=== PATIENT | male | born 1940 | race Caucasian/White ===

== ENCOUNTER 2018-07-21 10:13 | Inpatient (IN) ==
[2018-07-21] MEDS ORDERED: Acetaminophen 325 MG Tablet PO ONE (10:16)
[2018-07-21] MEDS ORDERED: Azithromycin 250 MG Tablet PO STA (10:16)
--- NOTE | 2018-07-21 10:23 | ED ---
HPI General Chief Complaint: Fever Stated Complaint: sob Time Seen by Provider: 07/21/18 10:16 Source: patient and family Mode of arrival: ambulatory Limitations: no limitations History of Present Illness MD complaint: Reports fever Onset (ago): day(s) Temperature Source: oral Associated symptoms: Reports rhinorrhea, nasal congestion and cough; Denies headache Relieving factors: "cold medicine" Exacerbating factors: nothing Treatments prior to arrival fever: Reports none Related Data Home Medications Medication Instructions Recorded Confirmed albuterol sulfate [Ventolin HFA] 2 puff INHALATION QID 07/21/18 07/21/18 amlodipine 10 mg PO DAILY 07/21/18 07/21/18 aspirin [Aspirin Low Dose] 1 tab PO DAILY 07/21/18 07/21/18 atorvastatin 10 mg PO DAILY 07/21/18 07/21/18 azelastine 1 spray INTRANASAL BID 07/21/18 07/21/18 calcium citrate-vitamin D3 1 tab PO BID 07/21/18 07/21/18 [Citracal + D Maximum] cholecalciferol (vitamin D3) 5,000 unit PO DAILY 07/21/18 07/21/18 [Vitamin D3] colestipol 1 g PO DAILY 07/21/18 07/21/18 ezetimibe [Zetia] 10 mg PO DAILY 07/21/18 07/21/18 fluticasone [ClariSpray] 1 spray INTRANASAL DAILY 07/21/18 07/21/18 fluticasone [Flonase Allergy 1 spray INTRANASAL DAILY 07/21/18 07/21/18 Relief] ipratropium bromide 2 spray INTRANASAL BID 07/21/18 07/21/18 Allergies Allergy/AdvReac Type Severity Reaction Status Date / Time No Known Allergies Allergy Verified 07/21/18 10:16 Review of Systems ROS: all other systems reviewed are negative Constitutional Reports fever(s) ENT Reports nasal discharge Cardiovascular Denies chest pain PMFSH Surgical History Surgical History Hx of total knee replacement (Acute) Social History Social History Substance History: No History of Abuse Second Hand Smoke Exposure: No Smoking Status: Former smoker How Often Do You Have a Drink Containing Alcohol: Monthly or less [facility] within the Last 8 Weeks: No Recent Out of Country Travel within the Last 8 Weeks: No Exam Narrative Exam Narrative: GENERAL: Uncomfortable looks ill SKIN: Focused skin assessment warm/dry. HEAD: Atraumatic. Normocephalic. EYES: Pupils equal and round. No scleral icterus. No injection or drainage. ENT: No nasal bleeding or discharge. Mucous membranes pink and moist. No angioedema non drooling NECK: Trachea midline. No JVD. No meningeal signs CARDIOVASCULAR: Regular rate and rhythm RESPIRATORY: No accessory muscle use. . Breath sounds equal decreased bilaterally. GASTROINTESTINAL: Abdomen soft, non-tender, nondistended. Nontender calves MUSCULOSKELETAL: No obvious deformities. No clubbing. No cyanosis. No edema. NEUROLOGICAL: Awake and alert. No obvious cranial nerve deficits. Motor grossly within normal limits. Normal speech. PSYCHIATRIC: Appropriate mood and affect; insight and judgment normal. Course Reevaluation(s) Reevaluation #1: jessica Tuttle looks better. Discussed with /daughter at bedside no signs of acute airway compromise. Discussed with nalini jacobs md to admit Time: 11:54 Initial Documented Vital Signs Temperature 99.1 F 07/21/18 10:15 Pulse Rate 116 H 07/21/18 10:15 Respiratory Rate 20 07/21/18 10:15 Blood Pressure 154/68 H 07/21/18 10:15 Pulse Oximetry 72 L 07/21/18 10:15 Last Documented Vital Signs Temperature 99.1 F 07/21/18 10:15 Pulse Rate 81 07/21/18 11:33 Respiratory Rate 16 07/21/18 11:33 Blood Pressure 154/68 H 07/21/18 10:15 Pulse Oximetry 89 L 07/21/18 10:25 Medical Decision Making [facility] Narrative Medical Screen Exam Complete: Yes Emergency Medical Condition: Yes Lab Data Result diagrams: 07/21/18 10:15 07/21/18 10:15 Lab Results 07/21/18 07/21/18 07/21/18 Range/Units 10:14 10:15 10:15 CBC w Diff Auto diff final WBC 10.8 (4.0-11.0) th/mm3 RBC 4.88 (4.50-5.90) mil/mm3 Hgb 13.6 (13.0-17.0) gm/dL Hct 39.8 (39.0-51.0) % MCV 81.7 (80.0-100.0) fL MCH 27.8 (27.0-34.0) pg MCHC 34.0 (32.0-36.0) % RDW 13.6 (11.6-17.2) % Plt Count 172 (150-450) th/mm3 MPV 8.7 (7.0-11.0) fL Neut % (Auto) 80.0 H (16.0-70.0) % Lymph % (Auto) 10.5 (9.0-44.0) % [place] % (Auto) 8.3 H (0.0-8.0) % Eos % (Auto) 0.8 (0.0-4.0) % Baso % (Auto) 0.4 (0.0-2.0) % Neut # (Auto) 8.6 H (1.8-7.7) th/mm3 Lymph # (Auto) 1.1 (1.0-4.8) th/mm3 [place] # (Auto) 0.9 (0.0-0.9) th/mm3 Eos # (Auto) 0.1 (0.0-0.4) th/mm3 Baso # (Auto) 0.0 (0.0-0.2) th/mm3 WBC Differential . Differential Comment . Sodium 142 (136-145) meq/L Potassium 4.7 (3.5-5.1) meq/L Chloride 107 (98-107) meq/L Carbon Dioxide 26.5 (21.0-32.0) meq/L Anion Gap 9 (5-15) meq/L BUN 17 (7-18) mg/dL Creatinine 1.30 (0.60-1.30) mg/dL Estimated GFR 53 L (>89) mL/min POC Glucose (68-110) mg/dl Random Glucose 180 H (74-106) mg/dL Lactic Acid 3.0 H (0.4-2.0) mmol/L Calcium 8.3 L (8.5-10.1) mg/dL Magnesium 1.8 (1.5-2.5) mg/dL Total Bilirubin 1.0 (0.2-1.0) mg/dL AST 25 (15-37) U/L ALT 23 (12-78) U/L Alkaline Phosphatase 88 (45-117) U/L Troponin I (0.02-0.05) ng/mL Total Protein 6.3 L (6.4-8.2) g/dL Albumin 3.0 L (3.4-5.0) g/dL Ur Collection Type Urine Color (Yellw/Straw) Urine Clarity (Clear) Urine pH (5.0-8.5) Ur Specific [place] (1.002-1.035) Urine Protein (Neg-Trace) mg/dL Urine Glucose (UA) (Negative) mg/dL Urine Ketones (Negative) mg/dL Urine Occult Blood (Negative) Urine Nitrate (Negative) Urine Bilirubin (Negative) Urine Urobilinogen (Less than 2) mg/dL Ur Leukocyte Esterase (Negative) Urine WBC (0-5) /hpf Ur Squamous Epith Cells (0-5) /hpf Urine Mucus (Occasional) /lpf Micro UA Comment Ur Microscopic Review Urine Culture Comments 07/21/18 07/21/18 07/21/18 Range/Units 10:15 10:36 11:12 CBC w Diff WBC (4.0-11.0) th/mm3 RBC (4.50-5.90) mil/mm3 Hgb (13.0-17.0) gm/dL Hct (39.0-51.0) % MCV (80.0-100.0) fL MCH (27.0-34.0) pg MCHC (32.0-36.0) % RDW (11.6-17.2) % Plt Count (150-450) th/mm3 MPV (7.0-11.0) fL Neut % (Auto) (16.0-70.0) % Lymph % (Auto) (9.0-44.0) % [place] % (Auto) (0.0-8.0) % Eos % (Auto) (0.0-4.0) % Baso % (Auto) (0.0-2.0) % Neut # (Auto) (1.8-7.7) th/mm3 Lymph # (Auto) (1.0-4.8) th/mm3 [place] # (Auto) (0.0-0.9) th/mm3 Eos # (Auto) (0.0-0.4) th/mm3 Baso # (Auto) (0.0-0.2) th/mm3 WBC Differential Differential Comment Sodium (136-145) meq/L Potassium (3.5-5.1) meq/L Chloride (98-107) meq/L Carbon Dioxide (21.0-32.0) meq/L Anion Gap (5-15) meq/L BUN (7-18) mg/dL Creatinine (0.60-1.30) mg/dL Estimated GFR (>89) mL/min POC Glucose 155 H (68-110) mg/dl Random Glucose (74-106) mg/dL Lactic Acid (0.4-2.0) mmol/L Calcium (8.5-10.1) mg/dL Magnesium (1.5-2.5) mg/dL Total Bilirubin (0.2-1.0) mg/dL AST (15-37) U/L ALT (12-78) U/L Alkaline Phosphatase (45-117) U/L Troponin I 0.03 (0.02-0.05) ng/mL Total Protein (6.4-8.2) g/dL Albumin (3.4-5.0) g/dL Ur Collection Type Clean catch Urine Color Straw (Yellw/Straw) Urine Clarity Clear (Clear) Urine pH 5.5 (5.0-8.5) Ur Specific [place] 1.025 (1.002-1.035) Urine Protein Negative (Neg-Trace) mg/dL Urine Glucose (UA) Negative (Negative) mg/dL Urine Ketones Negative (Negative) mg/dL Urine Occult Blood Negative (Negative) Urine Nitrate Negative (Negative) Urine Bilirubin Negative (Negative) Urine Urobilinogen 0.2 (Less than 2) mg/dL Ur Leukocyte Esterase Negative (Negative) Urine WBC 0-5 (0-5) /hpf Ur Squamous Epith Cells 0-5 (0-5) /hpf Urine Mucus Few H (Occasional) /lpf Micro UA Comment Culture not ind Ur Microscopic Review Microscopic reviewed Urine Culture Comments Culture not ind Imaging Data Radiologist's impression: Chest X-Ray 07/21/18 10:18 CONCLUSION: Increased interstitial markings bilaterally suggestive of pulmonary edema versus pneumonia. ECG Data Interpretation: sinus 82, no stemi Discharge Plan Discharge Disposition Patient Disposition: ED Admit(ED Internal Use Only) Discharge Details Diagnosis: Community acquired pneumonia Physicians Team ED Provider: Hermes Lovelace Primary Care Provider: NON STAFF,PROVIDER Rxs /Orders / Referrals /Forms Prescriptions: No Action atorvastatin 10 mg Tablet 10 mg PO DAILY RF: 0 aspirin [Aspirin Low Dose] 81 mg Tablet,Delayed Release (Dr/Ec) 1 tab PO DAILY RF: 0 amlodipine 10 mg Tablet 10 mg PO DAILY RF: 0 albuterol sulfate [Ventolin HFA] 90 mcg/actuation Hfa Aerosol Inhaler 2 puff INHALATION QID RF: 0 fluticasone [ClariSpray] 50 mcg/actuation [place],Suspension 1 spray INTRANASAL DAILY RF: 0 fluticasone [Flonase Allergy Relief] 50 mcg/actuation [place],Suspension 1 spray INTRANASAL DAILY RF: 0 colestipol 1 gram Tablet 1 g PO DAILY RF: 0 ipratropium bromide 0.03 % [place],Non-Aerosol 2 spray INTRANASAL BID RF: 0 ezetimibe [Zetia] 10 mg Tablet 10 mg PO DAILY RF: 0 calcium citrate-vitamin D3 [Citracal + D Maximum] 315-250 mg-unit Tablet 1 tab PO BID RF: 0 cholecalciferol (vitamin D3) [Vitamin D3] 5,000 unit Tablet 5,000 unit PO DAILY RF: 0 azelastine 0.15 % (205.5 mcg) [place]set,Non-Aerosol 1 spray INTRANASAL BID RF: 0 Discharge Interventions Interventions: Vital Signs Last Done: 07/21/18 11:54 Status ED Status: Pending Admission
--- NOTE | 2018-07-21 10:36 | XR ---
EXAM DATE: 07/21/2018 10:33 AM EST AGE/SEX: 78 years / Male INDICATIONS: Short of breath, cough, fever CLINICAL DATA: This is the patient's initial encounter. Patient reports that signs and symptoms have been present for 4 - 6 days and indicates a pain score of 0/10. MEDICAL/SURGICAL HISTORY: Chronic obstructive pulmonary disease. None. COMPARISON: No prior exams available for comparison. FINDINGS: There is increased interstitial markings bilaterally.. The heart size is mildly enlarged. No signific ant pleural effusions are demonstrated. No focal parenchymal infiltrates are demonstrated. The bony s tructures are grossly intact. There is no pneumothorax. CONCLUSION: Increased interstitial markings bilaterally suggestive of pulmonary edema versus pneumonia. Electronically signed by: Jn Markham MD 07/21/2018 10:35 AM EST
[2018-07-21 10:53] LABS: Baso % (Auto) 0.4 % (0.0-2.0); Eos # (Auto) 0.1 th/mm3 (0.0-0.4); Eos % (Auto) 0.8 % (0.0-4.0); Hematocrit 39.8 % (39.0-51.0); Hemoglobin 13.6 gm/dL (13.0-17.0); Lymph # (Auto) 1.1 th/mm3 (1.0-4.8); Lymph % (Auto) 10.5 % (9.0-44.0); Mean Corpuscular Hemoglobin 27.8 pg (27.0-34.0); Mean Corpuscular Volume 81.7 fL (80.0-100.0); Mean Platelet Volume 8.7 fL (7.0-11.0); Mono # (Auto) 0.9 th/mm3 (0.0-0.9); Mono % (Auto) 8.3 % (0.0-8.0); Neut # (Auto) 8.6 th/mm3 (1.8-7.7); Platelet Count 172 th/mm3 (150-450); Red Blood Count 4.88 mil/mm3 (4.50-5.90); Red Cell Distribution Width 13.6 % (11.6-17.2); White Blood Count 10.8 th/mm3 (4.0-11.0)
[2018-07-21 11:17] LABS: Chloride 107 meq/L (98-107); Potassium 4.7 meq/L (3.5-5.1); Sodium 142 meq/L (136-145)
[2018-07-21 11:20] LABS: Anion Gap 9 meq/L (5-15); Calcium 8.3 mg/dL (8.5-10.1); Carbon Dioxide 26.5 meq/L (21.0-32.0); Glucose,Random 180 mg/dL (74-106); Magnesium 1.8 mg/dL (1.5-2.5)
[2018-07-21 11:21] LABS: Blood Urea Nitrogen 17 mg/dL (7-18)
[2018-07-21 11:23] LABS: Alanine Aminotransferase 23 U/L (12-78)
[2018-07-21 11:24] LABS: Aspartate Aminotransferase 25 U/L (15-37); Glomerular Filtration Rate 53 mL/min (>89)
[2018-07-21 11:25] LABS: Total Protein 6.3 g/dL (6.4-8.2)
[2018-07-21 11:26] LABS: Alkaline Phosphatase 88 U/L (45-117)
[2018-07-21 11:39] LABS: Bilirubin,Urine Negative (Negative); Clarity,Urine Clear (Clear); Glucose,Urine (UA) Negative (Negative); Leukocyte Esterase,Urine Negative (Negative); Nitrite,Urine Negative (Negative); PH,Urine 5.5 (5.0-8.5); Specific Gravity,Urine 1.025 (1.002-1.035); Urobilinogen,Urine 0.2 mg/dL (Less than 2)
[2018-07-21 11:42] LABS: Color,Urine Straw (Yellw/Straw)
[2018-07-21 11:51] LABS: Squamous Epithelial Cell,Urine 0-5 /hpf (0-5); WBC,Urine 0-5 /hpf (0-5)
[2018-07-21 11:52] LABS: Mucus,Urine Few /lpf (Occasional)
[2018-07-21] MEDS ORDERED: Acetaminophen 325 MG Tablet PO PRN (11:53)
[2018-07-21] MEDS ORDERED: Bisacodyl 10 MG Supp RECTAL PRN (11:53)
[2018-07-21] MEDS: Sod Chloride 0.9% Inj 1,000 ML IV.SIG SCH ×2 (12:12→14:27)
[2018-07-21] MEDS: Enoxaparin Inj 40 MG/0.4 ML Syringe SQ SCH (12:13)
--- NOTE | 2018-07-21 13:02 | P.HP ---
History of Present Illness Primary Care Physician: PROVIDER NON STAFF Chief Complaint: Shortness of breath History of Present Illness: This is a pleasant 78-year-old male patient with a known medical history of COPD , hypertension, hyperlipidemia who presented to the ED with complaints of high fevers as well as shortness of breath and cough. Patient states that over the past 6 days or so he has been feeling overall fatigued and under the weather. He has been using [id number] Robitussin and decongestions for complaints of cough and nasal congestion. He denies any recent antibiotic use. He does follow with Dr. Corona, despatching and receiving clerk, for management of his COPD, and he does mention that he just finished a course of steroids for shortness of breath. Patient does not follow with a hair blender. He does follow closely with his PCP. Denies any recent headache, chest pain, abdominal pain, nausea, vomiting, diarrhea or dysuria. Patient does live at home with his . Usually able to perform all ADLs per self. At the time of assessment patient is lying in bed on supplemental O2, wheezing has improved, no accessory muscle use. Has improved with duo nebs. Will admit to hospital for COPD exacerbation and possible pneumonia. - Diagnosis (1) COPD with exacerbation (2) Community acquired pneumonia Inpatient Certification: I certify that the inpatient services were ordered in accordance with Medicare regulations governing the order. This includes certification that hospital inpatient services are reasonable and necessary and in the case of services not specified as inpatient-only under 42 CFR 419.22(n), that they are appropriately provided as inpatient services in accordance to with the 2-midnight benchmark under 43 CFR 412.3(e) Estimated Total Length of Stay (Days): 3 Plans for Post Hospital Care: Home Review of Systems All other systems reviewed negative except as stated in HPI PMFSH - History History Provided By: Patient - Medical History Medical History: Medical History (Last Reviewed 07/21/18 @ 14:32 by Lisa Bledsoe) COPD (chronic obstructive pulmonary disease) HTN (hypertension) High cholesterol - Surgical History Surgical History: Surgical History (Last Reviewed 07/21/18 @ 14:32 by Lisa Bledsoe) Hx of total knee replacement - Family History Family History: Family History (Last Updated 07/21/18 @ 14:33 by Lisa Bledsoe) Other Family history non-contributory - Social History I have reviewed the patient's Social History: Yes - Tobacco History Second Hand Smoke Exposure: No Tobacco Use In Past 30 Days: No Smoking Status: Former smoker - Alcohol History How Often Do You Have a Drink Containing Alcohol: Monthly or less - Substance Use History Substance History: No History of Abuse - Travel History Recent Travel in the [place] Within the Last 8 Weeks: No Recent Travel Out of the Country Within the Last 8 Weeks: No - Immunization History Tetanus Immunization: Unsure Medications and Allergies Active Medications: Active Medications Acetaminophen (Tylenol) 650 mg PO Q4H PRN PRN Reason: Temp > 100.4 Al Hydroxide/Mg Hydroxide (Milk Of Magncinda Liq) 30 ml PO Q12H PRN PRN Reason: Mild Constipation Albuterol (Duoneb Neb (Prn)) 1 ampul NEB Q6HR NEB PRN PRN Reason: SHORTNESS OF BREATH Bisacodyl (Dulcolax Supp) 10 mg RECTAL DAILY PRN PRN Reason: SEVERE CONSITIPATION Enoxaparin Sodium (Lovenox Inj) 40 mg SQ Q24H [facility] Last Admin: 07/21/18 12:13 Dose: 40 mg Methylprednisolone Sodium Succinate (Solumedrol Inj) 40 mg IV.PUSH Q6H ALEXANDREA Ondansetron HCl (Zofran Inj) 4 mg IV.PUSH Q6H PRN PRN Reason: NAUSEA OR VOMITING Senna/Docusate Sodium (Carolynn-Colace) 1 tab PO BID [facility] Sennosides (Senokot) 17.2 mg PO Q12H PRN PRN Reason: Moderate Constipation Sodium Chloride (Ns Flush) 2 ml IV.FLUSH BID [facility] Sodium Chloride (Ns Flush) 2 ml IV.FLUSH PRN PRN PRN Reason: FLUSH AFTER USING IV ACCESS Allergies Allergy/AdvReac Type Severity Reaction Status Date / Time No Known Allergies Allergy Verified 07/21/18 10:16 Home Medications Medication Instructions Recorded Confirmed Type albuterol sulfate [Ventolin HFA] 2 puff INHALATION QID 07/21/18 07/21/18 History amlodipine 10 mg PO DAILY 07/21/18 07/21/18 History aspirin [Aspirin Low Dose] 1 tab PO DAILY 07/21/18 07/21/18 History atorvastatin 10 mg PO DAILY 07/21/18 07/21/18 History azelastine 1 spray INTRANASAL BID 07/21/18 07/21/18 History calcium citrate-vitamin D3 1 tab PO BID 07/21/18 07/21/18 History [Citracal + D Maximum] cholecalciferol (vitamin D3) 5,000 unit PO DAILY 07/21/18 07/21/18 History [Vitamin D3] colestipol 1 g PO DAILY 07/21/18 07/21/18 History ezetimibe [Zetia] 10 mg PO DAILY 07/21/18 07/21/18 History fluticasone [ClariSpray] 1 spray INTRANASAL DAILY 07/21/18 07/21/18 History fluticasone [Flonase Allergy 1 spray INTRANASAL DAILY 07/21/18 07/21/18 History Relief] ipratropium bromide 2 spray INTRANASAL BID 07/21/18 07/21/18 History Exam Vital signs: Vital Signs 07/21/18 10:15 07/21/18 10:25 07/21/18 10:34 Temperature 99.1 F Pulse Rate 116 H 82 83 Respiratory Rate 20 14 Blood Pressure 154/68 H Pulse Oximetry 72 L 89 L 07/21/18 11:33 07/21/18 11:54 07/21/18 12:02 Temperature 98.4 F Pulse Rate 81 Respiratory Rate 16 20 Blood Pressure 107/52 L Pulse Oximetry 93 L 92 L 07/21/18 12:30 Temperature Pulse Rate 79 Respiratory Rate 18 Blood Pressure 102/48 L Pulse Oximetry 93 L Intake & Output 07/20/18 07/21/18 07/21/18 18:59 06:59 18:59 Intake Total 100 / 100 Balance 100 / 100 Weight 73.482 kg Intake: IV 100 / 100 Rocephin Inj 2,000 MG In NS Inj 100 / 100 100 ML @ 200 mls/hr IV.SIG STAT STA Rx#:[id number] Narrative: GENERAL: Well-developed, well-nourished patient in NAD. On supplemental O2. SKIN: Warm and dry. No rash. HEAD: Normocephalic. Atraumatic. EYES: Pupils equal and round. No scleral icterus. No injection or drainage. ENT: No nasal bleeding or discharge. Mucous membranes pink and moist. NECK: Supple. Trachea midline. CARDIOVASCULAR: Regular rate and rhythm. S1, S2 noted. No murmur appreciated. RESPIRATORY: Rhonchi and posterior bases. Wheezing diffuse.. Breath sounds equal bilaterally. GASTROINTESTINAL: Abdomen soft, non-tender, nondistended. Normoactive bowel sounds x4. MUSCULOSKELETAL: No obvious deformities. Extremities without clubbing, cyanosis , or edema. NEUROLOGICAL: Awake and alert. No obvious cranial nerve deficits. Motor grossly within normal limits. 5/5 muscle strength in bilateral upper and lower extremities. Normal speech. PSYCHIATRIC: Appropriate mood and affect; insight and judgment normal. Results - Labs CBC & Chem 7: 07/21/18 10:15 07/21/18 10:15 Labs: Laboratory Results - last 24 hr 07/21/18 07/21/18 07/21/18 10:14 10:15 10:15 CBC w Diff Auto diff final WBC 10.8 RBC 4.88 Hgb 13.6 Hct 39.8 MCV 81.7 MCH 27.8 MCHC 34.0 RDW 13.6 Plt Count 172 MPV 8.7 Neut % (Auto) 80.0 H Lymph % (Auto) 10.5 [place] % (Auto) 8.3 H Eos % (Auto) 0.8 Baso % (Auto) 0.4 Neut # (Auto) 8.6 H Lymph # (Auto) 1.1 [place] # (Auto) 0.9 Eos # (Auto) 0.1 Baso # (Auto) 0.0 WBC Differential . Differential Comment . Sodium 142 Potassium 4.7 Chloride 107 Carbon Dioxide 26.5 Anion Gap 9 BUN 17 Creatinine 1.30 Estimated GFR 53 L POC Glucose Random Glucose 180 H Lactic Acid 3.0 H Calcium 8.3 L Magnesium 1.8 Total Bilirubin 1.0 AST 25 ALT 23 Alkaline Phosphatase 88 Troponin I Total Protein 6.3 L Albumin 3.0 L Ur Collection Type Urine Color Urine Clarity Urine pH Ur Specific [place] Urine Protein Urine Glucose (UA) Urine Ketones Urine Occult Blood Urine Nitrate Urine Bilirubin Urine Urobilinogen Ur Leukocyte Esterase Urine WBC Ur Squamous Epith Cells Urine Mucus Micro UA Comment Ur Microscopic Review Urine Culture Comments 07/21/18 07/21/18 07/21/18 10:15 10:36 11:12 CBC w Diff WBC RBC Hgb Hct MCV MCH MCHC RDW Plt Count MPV Neut % (Auto) Lymph % (Auto) [place] % (Auto) Eos % (Auto) Baso % (Auto) Neut # (Auto) Lymph # (Auto) [place] # (Auto) Eos # (Auto) Baso # (Auto) WBC Differential Differential Comment Sodium Potassium Chloride Carbon Dioxide Anion Gap BUN Creatinine Estimated GFR POC Glucose 155 H Random Glucose Lactic Acid Calcium Magnesium Total Bilirubin AST ALT Alkaline Phosphatase Troponin I 0.03 Total Protein Albumin Ur Collection Type Clean catch Urine Color Straw Urine Clarity Clear Urine pH 5.5 Ur Specific [place] 1.025 Urine Protein Negative Urine Glucose (UA) Negative Urine Ketones Negative Urine Occult Blood Negative Urine Nitrate Negative Urine Bilirubin Negative Urine Urobilinogen 0.2 Ur Leukocyte Esterase Negative Urine WBC 0-5 Ur Squamous Epith Cells 0-5 Urine Mucus Few H Micro UA Comment Culture not ind Ur Microscopic Review Microscopic reviewed Urine Culture Comments Culture not ind - Imaging Impressions Chest X-Ray 07/21/18 10:18 CONCLUSION: Increased interstitial markings bilaterally suggestive of pulmonary edema versus pneumonia. Caprini VTE Risk Assessment Caprini VTE Risk Assessment: Moderate/High Risk (score >= 2) Caprini Risk Assessment Model: Point Value = 1 Point Value = 2 Point Value = 3 Point Value = 5 Age 41-60 Minor surgery BMI > 25 kg/m2 Swollen legs Varicose veins or History of unexplained or recurrent spontaneous Oral contraceptives or hormone replacement Sepsis (< 1 month) Serious lung disease, including pneumonia (< 1 month) Abnormal pulmonary function Acute myocardial infarction Congestive heart failure (< 1 month) History of inflammatory bowel disease Medical patient at bed rest Age 61-74 Arthroscopic surgery Major open surgery (> 45 min) Laparoscopic surgery (> 45 min) Malignancy Confined to bed (> 72 hours) Immobilizing plaster cast Central venous access Age >= 75 History of VTE Family history of VTE Factor V Leiden Prothrombin [id number] Lupus anticoagulant Anticardiolipin antibodies Elevated serum homocysteine Heparin-induced thrombocytopenia Other congenital or acquired thrombophilia Stroke (< 1 month) Elective arthroplasty Hip, pelvis, or leg fracture Acute spinal cord injury (< 1 month) Prophylaxis Regimen: Total Risk Factor Score Risk Level Prophylaxis Regimen 0-1 Low Early ambulation 2 Moderate Order ONE of the following: *Sequential Compression Device (SCD) *Heparin 5000 units SQ BID 3-4 Higher Order ONE of the following medications: *Heparin 5000 units SQ TID *Enoxaparin/Lovenox 40 mg SQ daily (WT < 150 kg, CrCl > 30 mL/min) *Enoxaparin/Lovenox 30 mg SQ daily (WT < 150 kg, CrCl > 10-29 mL/min) *Enoxaparin/Lovenox 30 mg SQ BID (WT < 150 kg, CrCl > 30 mL/min) AND/OR *Sequential Compression Device (SCD) 5 or more Highest Order ONE of the following medications: *Heparin 5000 units SQ TID (Preferred with Epidurals) *Enoxaparin/Lovenox 40 mg SQ daily (WT < 150 kg, CrCl > 30 mL/min) *Enoxaparin/Lovenox 30 mg SQ daily (WT < 150 kg, CrCl > 10-29 mL/min) *Enoxaparin/Lovenox 30 mg SQ BID (WT < 150 kg, CrCl > 30 mL/min) AND *Sequential Compression Device (SCD) Assessment and Plan - Assessment (1) COPD with exacerbation Code(s): J44.1 - Chronic obstructive pulmonary disease with (acute) exacerbation Status: Acute (2) Community acquired pneumonia Code(s): J18.9 - Pneumonia, unspecified organism Status: Acute - Plan This is a 78-year-old male patient with COPD with exacerbation Community-acquired pneumonia Lactic acidosis may be elevated secondary to COPD exacerbation, rule out sepsis. -Patient presents with shortness of breath and cough with fever times 6 days. -Status post steroid taper in outpatient setting. No recent antibiotics. -CXR reviewed showing questionable pulmonary edema vs pneumonia. Will obtain CT chest. Follow. -White blood cell 10.8, lactic acid 3.0, tachycardia on presentation. Legionella and Peptococcus and influenza negative. Blood cultures pending, follow. -Patient was given azithromycin and ceftriaxone in ED, will continue. -Duo nebs as needed and scheduled for shortness of breath wheezing. Continue home inhalers. -Started on IV steroids. Will continue. May need echo. -There was question whether patient had pulmonary edema, Lasix 20 mg x1 was given in ED. Will follow BNP. Hypertension, chronic -On amlodipine at home. Will hold for now, patients BP is labile. Hyperlipidemia, chronic -Will continue home statin. DVT prophylaxis: SCDs. Lovenox. (2) Community acquired pneumonia Qualifiers: Laterality: right Lung location: upper lobe of lung Qualified Code(s): J18.1 - Lobar pneumonia, unspecified organism
--- NOTE | 2018-07-21 16:15 | CT ---
EXAM DATE: 07/21/2018 4:06 PM EST AGE/SEX: 78 years / Male INDICATIONS: Productive cough. Pneumonia. CLINICAL DATA: This is the patient's initial encounter. Patient reports that signs and symptoms have been present for 4 - 6 days and indicates a pain score of 0/10. MEDICAL/SURGICAL HISTORY: Chronic obstructive pulmonary disease. Hypercholesterolemia. Hypertensi on. . Knee surgery. RADIATION DOSE: 11.73 CTDI (mGy) COMPARISON: POI, CT CHEST W/ CONTRAST, 06/10/2018. . TECHNIQUE: Multiple contiguous axial images were obtained through the chest without contrast. Image s were obtained in suspended respiration using multiple row detector helical technique. Using automa roger exposure control and adjustment of the mA and/or kV according to patient size, radiation dose was kept as low as reasonably achievable to obtain optimal diagnostic quality images. DICOM format imag e data is available electronically for review and comparison. FINDINGS: Lung: Mosaic pattern of attenuation in the upper lobes, most likely secondary to diffuse groundglass opacities. New patchy airspace consolidation in the left lung base. Persistent scattered subpleural interstitial fibrosis and bibasilar bronchiectasis. 5 mm nodule in the superior segment of the right lower lobe. 3 mm nodule in the left upper lobe. Pleura: Redemonstration of minimal posterior medial pleural thickening with scattered calcifications on the right. Mediastinum: Heart is grossly unremarkable without significant pericardial effusion. Coronary artery calcifications. Redemonstration of multiple mediastinal lymph nodes which have increased in number a nd size. The largest now measures 1.4 x 1.1 cm in the anterior carinal region compared to 1.2 x 0.8 c m on prior exam. Osseous Structures: No abnormal focal lytic or blastic bony lesions. Degenerative spondylosis of the thoracic spine. Soft Tissues: Soft tissues are unremarkable. No significant axillary adenopathy. Other: Visulaized upper abdomen is unremarkable. CONCLUSION: 1. Interval development of mosaic attenuation in the upper lobes most likely secondary to diffuse gr oundglass opacities. Differential considerations include atypical pulmonary edema versus atypical inf ection. 2. New patchy airspace consolidation in the left lung base which may reflect developing bronchopneum onia. 3. New 5 mm nodule in the superior segment of the right lower lobe and 3 mm nodule in the left upper lobe, likely inflammatory/infectious. Routine follow-up of sub-6 mm nodules is not recommended. Twel ve-month follow-up CT exam may be performed if patient is at high risk per 2017 Fleischner criteria. 4. Progressive mild mediastinal adenopathy. Although nonspecific, suspect inflammatory/infectious et iology. 5. Additional stable ancillary findings, as above. Electronically signed by: Irving Pop MD 07/21/2018 4:13 PM EST
[2018-07-21] MEDS: MethylPREDNISolone Sod Succinate Inj 40 MG/ML Vial IV.PUSH SCH (20:28)
[2018-07-21] MEDS: Senna/Docusate Sodium 8.6/50 MG Tablet PO SCH (20:32)
[2018-07-22] MEDS: MethylPREDNISolone Sod Succinate Inj 40 MG/ML Vial IV.PUSH SCH ×4 (00:38→18:49)
[2018-07-22 06:08] LABS: Baso % (Auto) 0.1 % (0.0-2.0); Eos % (Auto) 0.1 % (0.0-4.0); Hematocrit 39.4 % (39.0-51.0); Hemoglobin 12.9 gm/dL (13.0-17.0); Lymph # (Auto) 0.7 th/mm3 (1.0-4.8); Lymph % (Auto) 7.4 % (9.0-44.0); Mean Corpuscular HGB Conc 32.8 % (32.0-36.0); Mean Corpuscular Hemoglobin 26.8 pg (27.0-34.0); Mean Corpuscular Volume 81.9 fL (80.0-100.0); Mean Platelet Volume 8.4 fL (7.0-11.0); Mono # (Auto) 0.1 th/mm3 (0.0-0.9); Mono % (Auto) 1.4 % (0.0-8.0); Neut # (Auto) 8.7 th/mm3 (1.8-7.7); Platelet Count 173 th/mm3 (150-450); Red Blood Count 4.81 mil/mm3 (4.50-5.90); White Blood Count 9.5 th/mm3 (4.0-11.0)
[2018-07-22 06:21] LABS: Chloride 106 meq/L (98-107); Potassium 4.2 meq/L (3.5-5.1); Sodium 143 meq/L (136-145)
[2018-07-22 06:26] LABS: Calcium 8.4 mg/dL (8.5-10.1); INR 1.2 Ratio; Prothrombin Time 12.5 sec (9.8-11.6)
[2018-07-22 06:27] LABS: Albumin 2.8 g/dL (3.4-5.0); Anion Gap 8 meq/L (5-15); Blood Urea Nitrogen 18 mg/dL (7-18); Carbon Dioxide 28.9 meq/L (21.0-32.0); Glucose,Random 257 mg/dL (74-106)
[2018-07-22 06:30] LABS: Alanine Aminotransferase 23 U/L (12-78); Aspartate Aminotransferase 25 U/L (15-37); Glomerular Filtration Rate 72 mL/min (>89)
[2018-07-22 06:31] LABS: Total Protein 6.4 g/dL (6.4-8.2)
[2018-07-22 06:32] LABS: Alkaline Phosphatase 86 U/L (45-117)
--- NOTE | 2018-07-22 08:39 | P.PNIM ---
Subjective Interval history: Follow up pneumonia and COPD exacerbation. Patient seen and examined, lying in bed comfortably no apparent distress. at bedside. Patient is on 6 L nasal cannula overnight. He states he feels somewhat improved. Does state he has been coughing up significant amount of sputum. Vital signs are stable. Labs stable. Afebrile. Will consult pulmonology today for increased need for O2. Physical Exam Vital signs: Vital Signs 07/21/18 10:15 07/21/18 10:25 07/21/18 10:34 Temperature 99.1 F Pulse Rate 116 H 82 83 Respiratory Rate 20 14 Blood Pressure 154/68 H Pulse Oximetry 72 L 89 L 07/21/18 11:33 07/21/18 11:54 07/21/18 12:02 Temperature 98.4 F Pulse Rate 81 Respiratory Rate 16 20 Blood Pressure 107/52 L Pulse Oximetry 93 L 92 L 07/21/18 12:30 07/21/18 13:55 07/21/18 15:45 Temperature 97.7 F Pulse Rate 79 71 Respiratory Rate 18 16 Blood Pressure 102/48 L 111/57 L Pulse Oximetry 93 L 93 L 92 L 07/21/18 16:00 07/21/18 20:00 07/21/18 20:30 Temperature 97.0 F L Pulse Rate 65 65 Respiratory Rate 14 Blood Pressure 126/62 Pulse Oximetry 94 L 92 L 07/21/18 22:00 07/21/18 22:20 07/21/18 23:00 Temperature 97.8 F 100.4 F H Pulse Rate 70 Respiratory Rate 24 Blood Pressure 145/62 H Pulse Oximetry 93 L 93 L 07/21/18 23:37 07/22/18 00:00 07/22/18 00:07 Temperature 98.4 F Pulse Rate 76 79 Respiratory Rate 16 22 Blood Pressure 122/51 L Pulse Oximetry 89 L 93 L 07/22/18 04:00 07/22/18 07:50 Temperature 96.8 F L Pulse Rate 71 Respiratory Rate 24 Blood Pressure 117/57 L Pulse Oximetry 92 L 94 L Intake & Output 07/21/18 07/22/18 07/22/18 18:59 06:59 18:59 Intake Total 2340 / 2340 Output Total 850 / 850 Balance 2340 / 2340 -850 / -850 Weight 73.482 kg 73.6 kg Intake: IV 2099 / 2099 NS Inj 1,000 ML @ 2000 mls/hr 1999 / 1999 IV.SIG Q30M ALEXANDREA Rx#:[id number] Rocephin Inj 2,000 MG In NS Inj 100 / 100 100 ML @ 200 mls/hr IV.SIG STAT STA Rx#:[id number] Oral 240 / 240 Output: Urine 850 / 850 Narrative: GENERAL: Well-developed, well-nourished patient in NAD. On supplemental O2. SKIN: Warm and dry. No rash. HEAD: Normocephalic. Atraumatic. EYES: Pupils equal and round. No scleral icterus. No injection or drainage. ENT: No nasal bleeding or discharge. Mucous membranes pink and moist. NECK: Supple. Trachea midline. CARDIOVASCULAR: Regular rate and rhythm. S1, S2 noted. No murmur appreciated. RESPIRATORY: Rhonchi and posterior bases. Breath sounds equal bilaterally. GASTROINTESTINAL: Abdomen soft, non-tender, nondistended. Normoactive bowel sounds x4. MUSCULOSKELETAL: No obvious deformities. Extremities without clubbing, cyanosis , or edema. NEUROLOGICAL: Awake and alert. No obvious cranial nerve deficits. Motor grossly within normal limits. 5/5 muscle strength in bilateral upper and lower extremities. Normal speech. PSYCHIATRIC: Appropriate mood and affect; insight and judgment normal. Results - Labs CBC & Chem 7: 07/22/18 05:05 07/22/18 05:05 Laboratory Results - last 24 hr 07/21/18 07/21/18 07/21/18 10:14 10:15 10:15 CBC w Diff Auto diff final WBC 10.8 RBC 4.88 Hgb 13.6 Hct 39.8 MCV 81.7 MCH 27.8 MCHC 34.0 RDW 13.6 Plt Count 172 MPV 8.7 Neut % (Auto) 80.0 H Lymph % (Auto) 10.5 [place] % (Auto) 8.3 H Eos % (Auto) 0.8 Baso % (Auto) 0.4 Neut # (Auto) 8.6 H Lymph # (Auto) 1.1 [place] # (Auto) 0.9 Eos # (Auto) 0.1 Baso # (Auto) 0.0 WBC Differential . Differential Comment . PT INR Sodium 142 Potassium 4.7 Chloride 107 Carbon Dioxide 26.5 Anion Gap 9 BUN 17 Creatinine 1.30 Estimated GFR 53 L POC Glucose Random Glucose 180 H Lactic Acid 3.0 H Calcium 8.3 L Magnesium 1.8 Total Bilirubin 1.0 AST 25 ALT 23 Alkaline Phosphatase 88 Troponin I B-Natriuretic Peptide Total Protein 6.3 L Albumin 3.0 L Ur Collection Type Urine Color Urine Clarity Urine pH Ur Specific [place] Urine Protein Urine Glucose (UA) Urine Ketones Urine Occult Blood Urine Nitrate Urine Bilirubin Urine Urobilinogen Ur Leukocyte Esterase Urine WBC Ur Squamous Epith Cells Urine Mucus Micro UA Comment Ur Microscopic Review Urine Culture Comments 07/21/18 07/21/18 07/21/18 10:15 10:15 10:36 CBC w Diff WBC RBC Hgb Hct MCV MCH MCHC RDW Plt Count MPV Neut % (Auto) Lymph % (Auto) [place] % (Auto) Eos % (Auto) Baso % (Auto) Neut # (Auto) Lymph # (Auto) [place] # (Auto) Eos # (Auto) Baso # (Auto) WBC Differential Differential Comment PT INR Sodium Potassium Chloride Carbon Dioxide Anion Gap BUN Creatinine Estimated GFR POC Glucose 155 H Random Glucose Lactic Acid Calcium Magnesium Total Bilirubin AST ALT Alkaline Phosphatase Troponin I 0.03 B-Natriuretic Peptide 52 Total Protein Albumin Ur Collection Type Urine Color Urine Clarity Urine pH Ur Specific [place] Urine Protein Urine Glucose (UA) Urine Ketones Urine Occult Blood Urine Nitrate Urine Bilirubin Urine Urobilinogen Ur Leukocyte Esterase Urine WBC Ur Squamous Epith Cells Urine Mucus Micro UA Comment Ur Microscopic Review Urine Culture Comments 07/21/18 07/21/18 07/22/18 11:12 14:49 05:05 CBC w Diff Auto diff final WBC 9.5 RBC 4.81 Hgb 12.9 L Hct 39.4 MCV 81.9 MCH 26.8 L MCHC 32.8 RDW 14.0 Plt Count 173 MPV 8.4 Neut % (Auto) 91.0 H Lymph % (Auto) 7.4 L [place] % (Auto) 1.4 Eos % (Auto) 0.1 Baso % (Auto) 0.1 Neut # (Auto) 8.7 H Lymph # (Auto) 0.7 L [place] # (Auto) 0.1 Eos # (Auto) 0.0 Baso # (Auto) 0.0 WBC Differential . Differential Comment . PT INR Sodium Potassium Chloride Carbon Dioxide Anion Gap BUN Creatinine Estimated GFR POC Glucose Random Glucose Lactic Acid 2.7 H Calcium Magnesium Total Bilirubin AST ALT Alkaline Phosphatase Troponin I B-Natriuretic Peptide Total Protein Albumin Ur Collection Type Clean catch Urine Color Straw Urine Clarity Clear Urine pH 5.5 Ur Specific [place] 1.025 Urine Protein Negative Urine Glucose (UA) Negative Urine Ketones Negative Urine Occult Blood Negative Urine Nitrate Negative Urine Bilirubin Negative Urine Urobilinogen 0.2 Ur Leukocyte Esterase Negative Urine WBC 0-5 Ur Squamous Epith Cells 0-5 Urine Mucus Few H Micro UA Comment Culture not ind Ur Microscopic Review Microscopic reviewed Urine Culture Comments Culture not ind 07/22/18 07/22/18 05:05 05:05 CBC w Diff WBC RBC Hgb Hct MCV MCH MCHC RDW Plt Count MPV Neut % (Auto) Lymph % (Auto) [place] % (Auto) Eos % (Auto) Baso % (Auto) Neut # (Auto) Lymph # (Auto) [place] # (Auto) Eos # (Auto) Baso # (Auto) WBC Differential Differential Comment PT 12.5 H INR 1.2 Sodium 143 Potassium 4.2 Chloride 106 Carbon Dioxide 28.9 Anion Gap 8 BUN 18 Creatinine 1.00 Estimated GFR 72 L POC Glucose Random Glucose 257 H Lactic Acid Calcium 8.4 L Magnesium Total Bilirubin 1.0 AST 25 ALT 23 Alkaline Phosphatase 86 Troponin I B-Natriuretic Peptide Total Protein 6.4 Albumin 2.8 L Ur Collection Type Urine Color Urine Clarity Urine pH Ur Specific [place] Urine Protein Urine Glucose (UA) Urine Ketones Urine Occult Blood Urine Nitrate Urine Bilirubin Urine Urobilinogen Ur Leukocyte Esterase Urine WBC Ur Squamous Epith Cells Urine Mucus Micro UA Comment Ur Microscopic Review Urine Culture Comments Microbiology 07/21/18 11:12 Urine - Clean Catch Urine Streptococcus pneumoniae Antigen ( M - Final POS S. pneumoniae antigen 07/21/18 11:12 Urine - Clean Catch Urine Legionella Antigen - Final Presumptive negative for Legionella pneumophila serogroup 1 antigen in urine, suggesting no recent or recurrent infection. Infection due to Legionella cannot be ruled out since other serogroups and species may cause disease, antigen may not be present in urine in early infection, and the level of antigen present in the urine may be below the detection limit of the test. 07/21/18 10:25 Nasal Wash Influenza Types A,B Antigen - Final Negative for FLU A and B antigen Infection due to influenza A or B cannot be ruled out since the antigen present in the sample may be below the detection limit of the test. - Imaging Impressions Chest CT 07/21/18 00:00 CONCLUSION: 1. Interval development of mosaic attenuation in the upper lobes most likely secondary to diffuse groundglass opacities. Differential considerations include atypical pulmonary edema versus atypical infection. 2. New patchy airspace consolidation in the left lung base which may reflect developing bronchopneumonia. 3. New 5 mm nodule in the superior segment of the right lower lobe and 3 mm nodule in the left upper lobe, likely inflammatory/infectious. Routine follow- up of sub-6 mm nodules is not recommended. Twelve-month follow-up CT exam may be performed if patient is at high risk per 2017 Fleischner criteria. 4. Progressive mild mediastinal adenopathy. Although nonspecific, suspect inflammatory/infectious etiology. 5. Additional stable ancillary findings, as above. Chest X-Ray 07/21/18 10:18 CONCLUSION: Increased interstitial markings bilaterally suggestive of pulmonary edema versus pneumonia. Assessment and Plan - Assessment (1) COPD with exacerbation Code(s): J44.1 - Chronic obstructive pulmonary disease with (acute) exacerbation Status: Acute (2) Community acquired pneumonia Code(s): J18.9 - Pneumonia, unspecified organism Status: Acute - Plan This is a 78-year-old male patient with Severe sepsis COPD with exacerbation Community-acquired pneumonia, streptococcus pneumoniae + Acute respiratory failure with need for supplement O2, currently on 6L NC. -Patient presents with shortness of breath and cough with fever x 6 days. -Status post steroid taper in outpatient setting. No recent antibiotics. -White blood cell 10.8, lactic acid 3.0, tachycardia on presentation. -CXR reviewed showing questionable pulmonary edema vs pneumonia. -CT chest obtained and showing new consolidation in left lung, with interval development of mosaic attenuation in the upper lobes most likely secondary to diffuse ground-glass opacities. Also shows new 5 mm nodule in the superior segment of the right lower lobe and 3 mm nodule in the left upper lobe. No known history of previous lung nodules. -Legionella and influenza negative. -Blood cultures pending, follow. -Patient was given azithromycin and ceftriaxone in ED, will continue IV. -Duo nebs as needed and scheduled for shortness of breath wheezing. Continue home inhalers. -Started on IV steroids. Will continue. -Will obtain ECHO. There was question whether patient had pulmonary edema, Lasix 20 mg x1 was given in ED. BNP normal. Denies ever having an ECHO in the past. -Consult placed to pulmonology, follows with Dr. Hooper, will await further input and recommendations. No improvement overnight. -Supportive care. Encouraged deep breathing and coughing, increase in activity and use of incentive spirometry. Hypertension, chronic -On amlodipine at home. -Will hold for now, patients BP is labile. Hyperlipidemia, chronic -Will continue home statin. DVT prophylaxis: SCDs. Lovenox. Discharge Planning: Awaiting clinical improvement. Still requiring 6LNC, pulm consulted and awaiting input. (2) Community acquired pneumonia Qualifiers: Laterality: right Lung location: upper lobe of lung Qualified Code(s): J18.1 - Lobar pneumonia, unspecified organism
[2018-07-22] MEDS ORDERED: COLESTIPOL 1 GM PO SCH (09:00)
[2018-07-22] MEDS: Tiotropium Bromide 18 MCG/ACT Inhaler INH SCH (09:18)
[2018-07-22] MEDS: Senna/Docusate Sodium 8.6/50 MG Tablet PO SCH ×2 (09:18→20:01)
[2018-07-22] MEDS: guaiFENesin 600 MG ER Tablet PO SCH ×2 (09:18→20:01)
[2018-07-22] MEDS: Azithromycin 250 MG Tablet PO SCH (09:19)
[2018-07-22] MEDS: Ezetimibe 10 MG Tablet PO SCH (09:19)
--- NOTE | 2018-07-22 11:25 | ECHRPT ---
Indication: Heart Failure CONCLUSIONS Normal left ventricular size. Wall thickness is normal. The left ventricular systolic function is normal with an estimated ejection fraction in the range of 60-65%. No regional wall motion abnormalities are present. There is trace tricuspid valve regurgitation. The estimated pulmonary arterial pressure is 41 mmHg. BP: / HR: Rhythm: MEASUREMENTS (Male / Female) Normal Values Technical Quality:Fair 2D ECHO LV Diastolic Diameter PLAX 4.9 cm 4.2 - 5.9 / 3.9 - 5.3 cm LV Systolic Diameter PLAX 3.1 cm IVS Diastolic Thickness 1.0 cm 0.6 - 1.0 / 0.6 - 0.9 cm LVPW Diastolic Thickness 1.0 cm 0.6 - 1.0 / 0.6 - 0.9 cm LV Relative Wall Thickness 0.4 RV Internal Dim ED PLAX 2.9 cm LVOT Diameter 1.9 cm Aortic Root Diameter 2.8 cm LA Systolic Diameter LX 3.5 cm 3.0 - 4.0 / 2.7 - 3.8 cm DOPPLER AV Peak Velocity 174.0 cm/s AV Peak Gradient 12.1 mmHg LVOT Peak Velocity 140.0 cm/s LVOT Peak Gradient 7.8 mmHg AV Area Cont Eq pk 2.3 cm Mitral E Point Velocity 62.7 cm/s Mitral A Point Velocity 78.0 cm/s Mitral E to A Ratio 0.8 LV E' Lateral Velocity 9.4 cm/s Mitral E to LV E' Lateral Ratio 6.7 LV E' Septal Velocity 5.8 cm/s Mitral E to LV E' Septal Ratio 10.9 TR Peak Velocity 278.0 cm/s TR Peak Gradient 30.9 mmHg Right Atrial Pressure 10.0 mmHg Pulmonary Artery Systolic Pressu 40.9 mmHg Right Ventricular Systolic Press 40.9 mmHg PV Peak Velocity 128.0 cm/s PV Peak Gradient 6.6 mmHg FINDINGS LEFT VENTRICLE Normal left ventricular size. Wall thickness is normal. The left ventricular systolic function is normal with an estimated ejection fraction in the range of 60-65%. No regional wall motion abnormalities are present. RIGHT VENTRICLE Normal right ventricular size and systolic function. LEFT ATRIUM The left atrial size is normal. RIGHT ATRIUM The right atrial size is normal. ATRIAL SEPTUM Normal atrial septal thickness without atrial level shunting by limited color doppler interrogation. AORTA The aortic root and proximal ascending aorta are normal in size on limited imaging. MITRAL VALVE Trace mitral valve regurgitation. AORTIC VALVE Trileaflet aortic valve. No aortic valve stenosis or regurgitation. TRICUSPID VALVE There is trace tricuspid valve regurgitation. The estimated pulmonary arterial pressure is 41 mmHg. PULMONARY VALVE No pulmonary valve regurgitation or stenosis. VESSELS The inferior vena cava is normal in size. PERICARDIUM No pericardial effusion. Dilip Hammond MD (Electronically Signed) Final Date:22 July 2018 11:24
[2018-07-22] MEDS: Enoxaparin Inj 40 MG/0.4 ML Syringe SQ SCH (12:50)
--- NOTE | 2018-07-22 15:24 | MB ---
cc: Joseph Ruiz MD DATE: 07/22/2018 REASON FOR CONSULTATION: COPD and pneumonia. HISTORY OF PRESENT ILLNESS: The patient is a 78-year-old male with long heavy smoking history; stopped smoking about 2 years ago, admitted with increasing shortness of breath, temperature elevation, cough with difficulty expectorate rating small amount of whitish yellowish mucoid sputum. He denies history of hemoptysis, anorexia, weight loss. Fever and chills have abated since his hospitalization. Shortness of breath is improved. He is presently on oxygen therapy for hypoxemia; however, is not on home oxygen therapy. PAST MEDICAL HISTORY: COPD, hypertension, and hyperlipidemia. FAMILY HISTORY: Noncontributory. CURRENT MEDICATIONS: Include IV Solu-Medrol, nebulized albuterol/ipatropium, ceftriaxone and Zithromax. ALLERGIES: NONE KNOWN TO MEDICATIONS. REVIEW OF SYSTEMS: A 12-point review of systems as per HPI and past history, otherwise negative. PHYSICAL EXAMINATION: GENERAL: She is alert, appears in no acute distress. VITAL SIGNS: Temperature 96, pulse 90, respirations 20, blood pressure 120/60, oxygen saturation 95% on 6 liters of oxygen nasal cannula. HEENT: Unremarkable. Eyes without icterus. NECK: Without adenopathy, thyroid enlargement; central trachea. CHEST: Few scattered rhonchi bilaterally. CARDIAC: PMI not appreciated. S1, S2 audible. No murmur. No rub. ABDOMEN: Lax, audible bowel sounds. PSYCHIATRIC: No clubbing, cyanosis or edema. IMAGING: CT scan of the chest at 07/21/2018 with bilateral lung upper lobe ground-glass opacities, left lower lung infiltrate, 5 mm nodule superior segment right lower lobe is noted and a 3 mm nodule in the left upper lobe, mild mediastinal adenopathy, probably reactive. LABORATORY DATA: White count 9000, hemoglobin 12, hematocrit 39, platelets 173,000. Sodium 143, potassium 4.2, BUN 18, creatinine 1. IMPRESSION: 1. Pneumonia. 2. Chronic obstructive pulmonary disease. 3. Lung nodule. 4. Hyperlipidemia. PLAN: The patient is improving with current regimen. Oxygen therapy will be continued. Hopefully, we will be able to taper and discontinue same prior to his discharge. He has not been on oxygen therapy at home previously. attempt to check his pulmonary function to assess severity of underlying chronic obstructive pulmonary disease. A 3-month followup CT scan would be appropriate to followup on the patient's lung nodules as well as the mediastinal adenopathy. I do thank you for asking me to partake in Mr. Pruitt's care. MD ALMAZ Brennan/blessing , 03:03 PM , 03:13 PM
[2018-07-22 17:07] LABS: ABG Base Excess 0.3 mmol/L (-2-2); ABG PCO2 36 mmHg (38-42); ABG PO2 66 mmHg (61-120)
[2018-07-22] MEDS: Sod Chloride 0.9% Inj 1,000 ML IV.CONT SCH (20:01)
--- NOTE | 2018-07-22 20:03 | ECG ---
Date Performed: 07/21/2018 Time Performed: 10:22:34 PTAGE: 78 years EKG: Sinus rhythm MARKED LEFT AXIS DEVIATION RIGHT BUNDLE BRANCH BLOCK ABNORMAL ECG NO PREVIOUS TRACING DOCTOR: Parvin Peraza Interpretating Date/Time 07/22/2018 19:56:04
[2018-07-23] MEDS: MethylPREDNISolone Sod Succinate Inj 40 MG/ML Vial IV.PUSH SCH ×5 (00:07→23:07)
[2018-07-23] MEDS: Sod Chloride 0.9% Inj 1,000 ML IV.CONT SCH ×3 (06:07→23:00)
[2018-07-23] MEDS: guaiFENesin 600 MG ER Tablet PO SCH ×2 (08:10→21:10)
[2018-07-23] MEDS: Azithromycin 250 MG Tablet PO SCH (08:10)
[2018-07-23] MEDS: Tiotropium Bromide 18 MCG/ACT Inhaler INH SCH (08:10)
[2018-07-23] MEDS: Senna/Docusate Sodium 8.6/50 MG Tablet PO SCH ×2 (08:11→21:10)
[2018-07-23] MEDS: Ezetimibe 10 MG Tablet PO SCH (08:11)
[2018-07-23] MEDS: Enoxaparin Inj 40 MG/0.4 ML Syringe SQ SCH (11:05)
--- NOTE | 2018-07-23 18:01 | P.PNIM ---
Subjective Interval history: 78-year-old male who was seen in follow-up for pneumonia, hypoxic respiratory failure. Patient is resting comfortably with oxygen on at this time. Patient is maintaining O2 saturations with 3 L nasal cannula. Patient has not used oxygen at home before. Vital signs are stable. Patient remains afebrile. Physical Exam Vital signs: Vital Signs 07/22/18 19:00 07/22/18 20:04 07/22/18 21:02 Temperature 96.9 F L Pulse Rate 75 71 Respiratory Rate 20 Blood Pressure 125/65 Pulse Oximetry 93 L 07/23/18 00:08 07/23/18 00:13 07/23/18 04:05 Temperature 97 F L Pulse Rate 73 72 62 Respiratory Rate 20 Blood Pressure 124/59 L Pulse Oximetry 07/23/18 04:14 07/23/18 08:40 07/23/18 09:37 Temperature 96.1 F L 96.2 F L Pulse Rate 65 79 Respiratory Rate 20 16 Blood Pressure 148/65 H 142/65 H Pulse Oximetry 95 95 92 L 07/23/18 13:45 Temperature 96.1 F L Pulse Rate 67 Respiratory Rate 18 Blood Pressure 113/55 L Pulse Oximetry 92 L Intake & Output 07/22/18 07/23/18 07/23/18 18:59 06:59 18:59 Intake Total 670 / 670 1000 / 1000 900 / 900 Output Total 600 / 600 200 / 200 Balance 70 / 70 800 / 800 900 / 900 Weight 73.6 kg Intake: IV 100 / 100 1000 / 1000 900 / 900 NS Inj 1,000 ML @ 100 mls/hr IV 1000 / 1000 800 / 800 .CONT .Q10H [facility] Rx#:[id number] Rocephin Inj 1,000 MG In NS Inj 100 / 100 100 / 100 100 ML @ 200 mls/hr IV.SIG Q24H [facility] Rx#:[id number] Oral 570 / 570 Output: Urine 600 / 600 200 / 200 Other: # Voids 2 Date of Last Bowel Movement 07/22/18 07/22/18 Narrative: GENERAL: Well-developed, well-nourished, in no acute distress. alert and orientated HEENT: Head is normocephalic without any lesions or masses noted. Facial features are symmetric. Eyes: Extraocular muscles are intact. Conjunctivae were clear. NECK: Supple without any masses. Trachea midline no deviation. No JVD, CARDIAC: Regular rhythm, regular rate. S1/S2 are heard. No murmurs gallops or rubs. LUNGS: Diminished breath sounds heard with decreased air movement, patient does have forced expiratory wheeze. No rhonchi or rales. No use of accessory muscles on inspiration or expiration. ABDOMEN: Soft, nontender. Nondistended. Bowel sounds heard in all 4 quadrants. No organomegaly or masses. Negative rebound, negative guarding EXTREMITIES: No edema, pulses are equal bilaterally. No cyanosis or clubbing NEUROLOGY: Mood and affect appear appropriate. Cranial nerves II through XII grossly intact. Moving all extremities, speech is clear Results - Labs CBC & Chem 7: 07/22/18 05:05 07/22/18 05:05 Laboratory Results - last 24 hr 07/23/18 07/23/18 07/23/18 00:15 05:00 08:55 Lactic Acid 2.9 H 2.6 H 4.5 H* Microbiology 07/21/18 10:10 Blood - Peripheral Aerobic Blood Culture - Preliminary No growth in 2 days 07/21/18 10:10 Blood - Peripheral Anaerobic Blood Culture - Preliminary No growth in 2 days 07/21/18 10:15 Blood - Peripheral Aerobic Blood Culture - Preliminary No growth in 2 days 07/21/18 10:15 Blood - Peripheral Anaerobic Blood Culture - Preliminary No growth in 2 days - Procedures ECHOCARDIOGRAM CONCLUSIONS Normal left ventricular size. Wall thickness is normal. The left ventricular systolic function is normal with an estimated ejection fraction in the range of 60-65%. No regional wall motion abnormalities are present. There is trace tricuspid valve regurgitation. The estimated pulmonary arterial pressure is 41 mmHg. Assessment and Plan - Assessment (1) COPD with exacerbation Code(s): J44.1 - Chronic obstructive pulmonary disease with (acute) exacerbation Status: Acute (2) Community acquired pneumonia Code(s): J18.9 - Pneumonia, unspecified organism Status: Acute - Plan Acute hypoxic respiratory failure, improving -Secondary to infectious process Streptococcus pneumonia, complicated by chronic obstructive pulmonary disease with possible exacerbation -Chest x-ray does show increased interstitial markings bilaterally suggestive pulmonary edema versus pneumonia -CT of the chest shows interval development of attenuation in the upper lobe secondary to diffuse groundglass opacities, pulmonary edema versus atypical infection. Airspace consolidation in left lung with developing bronchial pneumonia. New lung nodules which likely inflammatory/infectious process, follow-up CT in 12 months recommended by radiology -Echocardiogram was performed which did not show any valvular abnormality, good ejection fraction, mildly elevated PA peak pressure -Patient was given Lasix 40 mg IV x1 without any significant improvement -Continue Rocephin and Zithromax for antibiotic coverage -Continue O2 supplementation maintain O2 sat greater than 92% -Continue nebulizer treatment -Continue Solu-Medrol -Geophysical Support Specialist following the patient Community-acquired pneumonia with Streptococcus pneumonia -Antibiotics as above Lactic acidosis, persistent -Continue to follow lactic acid level Hypertension, chronic -Continue home medications Hyperlipidemia, chronic -Continued home medications DVT prophylaxis: -Subcutaneous Lovenox (2) Community acquired pneumonia Qualifiers: Laterality: right Lung location: upper lobe of lung Qualified Code(s): J18.1 - Lobar pneumonia, unspecified organism
--- NOTE | 2018-07-23 18:29 | P.PN ---
Subjective Interval history: ALERT LESS SOB NO FEVER Physical Exam Vital signs: Vital Signs 07/22/18 19:00 07/22/18 20:04 07/22/18 21:02 Temperature 96.9 F L Pulse Rate 75 71 Respiratory Rate 20 Blood Pressure 125/65 Pulse Oximetry 93 L 07/23/18 00:08 07/23/18 00:13 07/23/18 04:05 Temperature 97 F L Pulse Rate 73 72 62 Respiratory Rate 20 Blood Pressure 124/59 L Pulse Oximetry 07/23/18 04:14 07/23/18 08:40 07/23/18 09:37 Temperature 96.1 F L 96.2 F L Pulse Rate 65 79 Respiratory Rate 20 16 Blood Pressure 148/65 H 142/65 H Pulse Oximetry 95 95 92 L 07/23/18 13:45 Temperature 96.1 F L Pulse Rate 67 Respiratory Rate 18 Blood Pressure 113/55 L Pulse Oximetry 92 L Intake & Output 07/22/18 07/23/18 07/23/18 18:59 06:59 18:59 Intake Total 670 / 670 1000 / 1000 900 / 900 Output Total 600 / 600 200 / 200 Balance 70 / 70 800 / 800 900 / 900 Weight 73.6 kg Intake: IV 100 / 100 1000 / 1000 900 / 900 NS Inj 1,000 ML @ 100 mls/hr IV 1000 / 1000 800 / 800 .CONT .Q10H [facility] Rx#:[id number] Rocephin Inj 1,000 MG In NS Inj 100 / 100 100 / 100 100 ML @ 200 mls/hr IV.SIG Q24H [facility] Rx#:[id number] Oral 570 / 570 Output: Urine 600 / 600 200 / 200 Other: # Voids 2 Date of Last Bowel Movement 07/22/18 07/22/18 Narrative: GENERAL: Well-developed, well-nourished patient in NAD. On supplemental O2. SKIN: Warm and dry. No rash. HEAD: Normocephalic. Atraumatic. EYES: Pupils equal and round. No scleral icterus. No injection or drainage. ENT: No nasal bleeding or discharge. Mucous membranes pink and moist. NECK: Supple. Trachea midline. CARDIOVASCULAR: Regular rate and rhythm. S1, S2 noted. No murmur appreciated. RESPIRATORY: Rhonchi and posterior bases. Breath sounds equal bilaterally. GASTROINTESTINAL: Abdomen soft, non-tender, nondistended. Normoactive bowel sounds x4. MUSCULOSKELETAL: No obvious deformities. Extremities without clubbing, cyanosis , or edema. NEUROLOGICAL: Awake and alert. No obvious cranial nerve deficits. Motor grossly within normal limits. 5/5 muscle strength in bilateral upper and lower extremities. Normal speech. PSYCHIATRIC: Appropriate mood and affect; insight and judgment normal. Results - Labs CBC & Chem 7: 07/22/18 05:05 07/22/18 05:05 Laboratory Results - last 24 hr 07/23/18 07/23/18 07/23/18 00:15 05:00 08:55 Lactic Acid 2.9 H 2.6 H 4.5 H* Microbiology 07/21/18 10:10 Blood - Peripheral Aerobic Blood Culture - Preliminary No growth in 2 days 07/21/18 10:10 Blood - Peripheral Anaerobic Blood Culture - Preliminary No growth in 2 days 07/21/18 10:15 Blood - Peripheral Aerobic Blood Culture - Preliminary No growth in 2 days 07/21/18 10:15 Blood - Peripheral Anaerobic Blood Culture - Preliminary No growth in 2 days Assessment and Plan - Plan COPD EXACERBATION RESPIRATORY FAILURE PNA PLAN O2 ANTIBX F/U CXRAY
--- NOTE | 2018-07-23 19:38 | XR ---
EXAM DATE: 07/23/2018 7:35 PM EST AGE/SEX: 78 years / Male INDICATIONS: Shortness of breath. CLINICAL DATA: This is the patient's subsequent encounter. Patient reports that signs and symptoms h ave been present for 3 days and indicates a pain score of 0/10. MEDICAL/SURGICAL HISTORY: Chronic obstructive pulmonary disease. None. COMPARISON: [facility], CHEST 1V SINGLE AP, 07/21/2018. . FINDINGS: Persistent diffuse bilateral interstitial prominence. Increasing mild airspace disease at the left edward ng base. Cardiomediastinal contours are within normal limits. Remainder of the exam is unchanged. CONCLUSION: 1. Persistent diffuse interstitial edema. 2. Progressive mild airspace disease at the left lung base which may reflect atelectasis. Electronically signed by: Irving Pop MD 07/23/2018 7:37 PM EST
[2018-07-24] MEDS: MethylPREDNISolone Sod Succinate Inj 40 MG/ML Vial IV.PUSH SCH (05:44)
[2018-07-24 06:56] LABS: Eos % (Auto) 0.1 % (0.0-4.0); Hematocrit 36.6 % (39.0-51.0); Hemoglobin 12.1 gm/dL (13.0-17.0); Lymph # (Auto) 1.3 th/mm3 (1.0-4.8); Lymph % (Auto) 8.1 % (9.0-44.0); Mean Corpuscular Volume 81.8 fL (80.0-100.0); Mean Platelet Volume 8.6 fL (7.0-11.0); Mono # (Auto) 0.5 th/mm3 (0.0-0.9); Mono % (Auto) 3.1 % (0.0-8.0); Neut # (Auto) 13.9 th/mm3 (1.8-7.7); Neut % (Auto) 88.7 % (16.0-70.0); Platelet Count 198 th/mm3 (150-450); Red Blood Count 4.48 mil/mm3 (4.50-5.90); Red Cell Distribution Width 13.5 % (11.6-17.2); White Blood Count 15.7 th/mm3 (4.0-11.0)
[2018-07-24 07:34] LABS: Potassium 4.5 meq/L (3.5-5.1)
[2018-07-24 07:37] LABS: Calcium 8.1 mg/dL (8.5-10.1)
[2018-07-24 07:38] LABS: Carbon Dioxide 28.1 meq/L (21.0-32.0)
[2018-07-24] MEDS: guaiFENesin 600 MG ER Tablet PO SCH ×2 (09:20→21:22)
[2018-07-24] MEDS: amLODIPine 10 MG Tablet PO SCH (09:20)
[2018-07-24] MEDS: Azithromycin 250 MG Tablet PO SCH (09:20)
[2018-07-24] MEDS: Senna/Docusate Sodium 8.6/50 MG Tablet PO SCH ×2 (09:21→21:23)
[2018-07-24] MEDS: Ezetimibe 10 MG Tablet PO SCH (09:21)
[2018-07-24] MEDS: Tiotropium Bromide 18 MCG/ACT Inhaler INH SCH (09:29)
[2018-07-24] MEDS ORDERED: Dextrose 50% in Water 50 ML Vial IV.PUSH PRN (10:16)
--- NOTE | 2018-07-24 10:35 | P.PNIM ---
Subjective Interval history: 78-year-old male who is seen examined today for follow-up on hypoxic respiratory failure, pneumonia. Patient appears to be doing improved clinically. Patient wants to get up and walk around without the IV fluids. Vital signs are stable. Patient remains afebrile. Physical Exam Vital signs: Vital Signs 07/23/18 13:45 07/23/18 18:36 07/23/18 20:00 Temperature 96.1 F L 97.3 F L 94.5 F L Pulse Rate 67 72 68 Respiratory Rate 18 16 18 Blood Pressure 113/55 L 162/74 H 135/64 Pulse Oximetry 92 L 94 L 95 07/23/18 20:03 07/23/18 20:05 07/24/18 00:00 Temperature 97.6 F Pulse Rate 68 66 Respiratory Rate 18 Blood Pressure 116/58 L Pulse Oximetry 95 97 07/24/18 00:04 07/24/18 04:00 07/24/18 04:03 Temperature 98.5 F Pulse Rate 56 L 62 59 L Respiratory Rate 16 Blood Pressure 120/64 Pulse Oximetry 95 07/24/18 08:00 07/24/18 08:05 Temperature 96.6 F L Pulse Rate 65 Respiratory Rate 20 Blood Pressure 144/63 H Pulse Oximetry 95 93 L Intake & Output 07/23/18 07/24/18 07/24/18 18:59 06:59 18:59 Intake Total 1900 / 1900 769 / 769 321 / 321 Output Total 1725 / 1725 Balance 1900 / 1900 -956 / -956 321 / 321 Weight 75.5 kg Intake: IV 900 / 900 679 / 679 321 / 321 NS Inj 1,000 ML @ 100 mls/hr IV 800 / 800 679 / 679 321 / 321 .CONT .Q10H [facility] Rx#:[id number] Rocephin Inj 1,000 MG In NS Inj 100 / 100 100 ML @ 200 mls/hr IV.SIG Q24H [facility] Rx#:[id number] Oral 1000 / 1000 90 / 90 Output: Urine 1725 / 1725 Other: # Voids 3 Date of Last Bowel Movement 07/22/18 07/23/18 07/23/18 # Bowel Movements 1 Narrative: GENERAL: Well-developed, well-nourished, in no acute distress. alert and orientated HEENT: Head is normocephalic without any lesions or masses noted. Facial features are symmetric. Eyes: Extraocular muscles are intact. Conjunctivae were clear. NECK: Supple without any masses. Trachea midline no deviation. No JVD, CARDIAC: Regular rhythm, regular rate. S1/S2 are heard. No murmurs gallops or rubs. LUNGS: Improved airway movement noticed today. No wheeze, rhonchi or rales. No use of accessory muscles on inspiration or expiration. ABDOMEN: Soft, nontender. Nondistended. Bowel sounds heard in all 4 quadrants. No organomegaly or masses. Negative rebound, negative guarding EXTREMITIES: No edema, pulses are equal bilaterally. No cyanosis or clubbing NEUROLOGY: Mood and affect appear appropriate. Cranial nerves II through XII grossly intact. Moving all extremities, speech is clear Results - Labs CBC & Chem 7: 07/24/18 05:40 07/24/18 05:40 Laboratory Results - last 24 hr 07/23/18 07/23/18 07/24/18 18:45 21:07 05:40 CBC w Diff WBC RBC Hgb Hct MCV MCH MCHC RDW Plt Count MPV Neut % (Auto) Lymph % (Auto) [place] % (Auto) Eos % (Auto) Baso % (Auto) Neut # (Auto) Lymph # (Auto) [place] # (Auto) Eos # (Auto) Baso # (Auto) WBC Differential Differential Comment Sodium 145 Potassium 4.5 Chloride 111 H Carbon Dioxide 28.1 Anion Gap 6 BUN 19 H Creatinine 0.86 Estimated GFR 86 L Random Glucose 210 H Lactic Acid 3.5 H 2.5 H Calcium 8.1 L 07/24/18 05:40 CBC w Diff Auto diff final WBC 15.7 H RBC 4.48 L Hgb 12.1 L Hct 36.6 L MCV 81.8 MCH 27.0 MCHC 33.0 RDW 13.5 Plt Count 198 MPV 8.6 Neut % (Auto) 88.7 H Lymph % (Auto) 8.1 L [place] % (Auto) 3.1 Eos % (Auto) 0.1 Baso % (Auto) 0.0 Neut # (Auto) 13.9 H Lymph # (Auto) 1.3 [place] # (Auto) 0.5 Eos # (Auto) 0.0 Baso # (Auto) 0.0 WBC Differential . Differential Comment . Sodium Potassium Chloride Carbon Dioxide Anion Gap BUN Creatinine Estimated GFR Random Glucose Lactic Acid Calcium Microbiology 07/21/18 10:10 Blood - Peripheral Aerobic Blood Culture - Preliminary No growth in 2 days 07/21/18 10:10 Blood - Peripheral Anaerobic Blood Culture - Preliminary No growth in 2 days 07/21/18 10:15 Blood - Peripheral Aerobic Blood Culture - Preliminary No growth in 2 days 07/21/18 10:15 Blood - Peripheral Anaerobic Blood Culture - Preliminary No growth in 2 days - Imaging Impressions Chest X-Ray 07/23/18 18:29 CONCLUSION: 1. Persistent diffuse interstitial edema. 2. Progressive mild airspace disease at the left lung base which may reflect atelectasis. - Procedures ECHOCARDIOGRAM CONCLUSIONS Normal left ventricular size. Wall thickness is normal. The left ventricular systolic function is normal with an estimated ejection fraction in the range of 60-65%. No regional wall motion abnormalities are present. There is trace tricuspid valve regurgitation. The estimated pulmonary arterial pressure is 41 mmHg. Assessment and Plan - Assessment (1) COPD with exacerbation Code(s): J44.1 - Chronic obstructive pulmonary disease with (acute) exacerbation Status: Acute (2) Community acquired pneumonia Code(s): J18.9 - Pneumonia, unspecified organism Status: Acute - Plan Acute hypoxic respiratory failure, improving -Secondary to infectious process Streptococcus pneumonia, complicated by chronic obstructive pulmonary disease with possible exacerbation -Chest x-ray does show increased interstitial markings bilaterally suggestive pulmonary edema versus pneumonia -CT of the chest shows interval development of attenuation in the upper lobe secondary to diffuse groundglass opacities, pulmonary edema versus atypical infection. Airspace consolidation in left lung with developing bronchial pneumonia. New lung nodules which likely inflammatory/infectious process, follow-up CT in 12 months recommended by radiology -Echocardiogram was performed which did not show any valvular abnormality, good ejection fraction, mildly elevated PA peak pressure -Patient was given Lasix 40 mg IV x1 without any significant improvement -Continue Rocephin and Zithromax for antibiotic coverage -Continue O2 supplementation maintain O2 sat greater than 92% -Continue nebulizer treatment -Discontinue Solu-Medrol, start prednisone 20 mg twice daily -Vp Organizational Development following the patient Community-acquired pneumonia with Streptococcus pneumonia -Antibiotics as above Lactic acidosis, improving -Continue to follow lactic acid level Hyperglycemia, likely secondary to steroid use -Obtain hemoglobin A1c -Start Accu-Cheks with sliding scale insulin Hypertension, chronic -Continue home medications Hyperlipidemia, chronic -Continued home medications DVT prophylaxis: -Subcutaneous Lovenox (2) Community acquired pneumonia Qualifiers: Laterality: right Lung location: upper lobe of lung Qualified Code(s): J18.1 - Lobar pneumonia, unspecified organism
[2018-07-24] MEDS: Enoxaparin Inj 40 MG/0.4 ML Syringe SQ SCH (13:57)
[2018-07-24] MEDS: predniSONE 20 MG Tablet PO SCH ×2 (13:58→21:22)
[2018-07-24] MEDS: Insulin NovoLOG Aspart Correctional Sugar Inj SQ SCH ×3 (14:00→21:30)
[2018-07-24 15:47] LABS: Hemoglobin A1c 7.8 % (4.3-6.0)
[2018-07-25 06:47] LABS: Baso % (Auto) 0.3 % (0.0-2.0); Eos % (Auto) 0.2 % (0.0-4.0); Hematocrit 36.8 % (39.0-51.0); Hemoglobin 12.1 gm/dL (13.0-17.0); Lymph # (Auto) 1.3 th/mm3 (1.0-4.8); Lymph % (Auto) 11.1 % (9.0-44.0); Mean Corpuscular HGB Conc 32.8 % (32.0-36.0); Mean Corpuscular Hemoglobin 27.1 pg (27.0-34.0); Mean Corpuscular Volume 82.6 fL (80.0-100.0); Mean Platelet Volume 8.8 fL (7.0-11.0); Mono # (Auto) 0.8 th/mm3 (0.0-0.9); Mono % (Auto) 6.4 % (0.0-8.0); Neut # (Auto) 9.8 th/mm3 (1.8-7.7); Platelet Count 202 th/mm3 (150-450); Red Blood Count 4.46 mil/mm3 (4.50-5.90); Red Cell Distribution Width 13.8 % (11.6-17.2); White Blood Count 11.9 th/mm3 (4.0-11.0)
[2018-07-25 06:51] LABS: Chloride 109 meq/L (98-107); Sodium 144 meq/L (136-145)
[2018-07-25 06:57] LABS: Calcium 7.9 mg/dL (8.5-10.1)
[2018-07-25 06:58] LABS: Anion Gap 7 meq/L (5-15); Blood Urea Nitrogen 19 mg/dL (7-18); Carbon Dioxide 27.8 meq/L (21.0-32.0); Glucose,Random 174 mg/dL (74-106)
[2018-07-25 07:02] LABS: Glomerular Filtration Rate Greater Than 89 mL/min (>89)
[2018-07-25 08:44] VITALS: RESP 17
[2018-07-25] MEDS: Insulin NovoLOG Aspart Correctional Sugar Inj SQ SCH ×2 (09:34→12:15)
[2018-07-25] MEDS: Tiotropium Bromide 18 MCG/ACT Inhaler INH SCH (09:37)
[2018-07-25] MEDS: Azithromycin 250 MG Tablet PO SCH (09:39)
[2018-07-25] MEDS: Ezetimibe 10 MG Tablet PO SCH (09:40)
[2018-07-25] MEDS: predniSONE 20 MG Tablet PO SCH (09:40)
[2018-07-25] MEDS: guaiFENesin 600 MG ER Tablet PO SCH (09:40)
[2018-07-25] MEDS: amLODIPine 10 MG Tablet PO SCH (09:40)
[2018-07-25] MEDS: Senna/Docusate Sodium 8.6/50 MG Tablet PO SCH (09:41)
--- NOTE | 2018-07-25 10:36 | P.DCO ---
- Diagnosis (1) Acute and chronic respiratory failure with hypoxia Status: Acute (2) Community acquired pneumonia Status: Acute (3) COPD with exacerbation Status: Acute - Home Health Nursing Order: Medical education, Signs/symptoms of disease process, Oxygen administration education, Nursing assessment with vital signs - Case Management Consult Case Management Consult-Home Health: Yes - Certification I have seen patient Emigdio Pruitt on 07/25/18. My clinical findings support the need for the requested home health care services because: Patient has SOB I certify that my clinical findings support that this patient is homebound because: Hx COPD - exertion dyspnea/weakness (2) Community acquired pneumonia Qualifiers: Laterality: right Lung location: upper lobe of lung Qualified Code(s): J18.1 - Lobar pneumonia, unspecified organism
--- NOTE | 2018-07-25 11:40 | P.DS ---
Date of admission: 07/21/18 11:57 Primary care physician: PROVIDER NON STAFF Attending physician on discharge: Steve Perez Anticipated date of discharge: 07/25/18 Brief History from admission: This is a pleasant 78-year-old male patient with a known medical history of COPD , hypertension, hyperlipidemia who presented to the ED with complaints of high fevers as well as shortness of breath and cough. Patient states that over the past 6 days or so he has been feeling overall fatigued and under the weather. He has been using [id number] Robitussin and decongestions for complaints of cough and nasal congestion. He denies any recent antibiotic use. He does follow with Dr. Corona, die reamer, for management of his COPD, and he does mention that he just finished a course of steroids for shortness of breath. 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 He does follow closely with his PCP. Denies any recent headache, chest pain, abdominal pain, nausea, vomiting, diarrhea or dysuria. Patient does live at home with his . Usually able to perform all ADLs per self. At the time of assessment patient is lying in bed on supplemental O2, wheezing has improved, no accessory muscle use. Has improved with duo nebs. Will admit to hospital for COPD exacerbation and possible pneumonia. DS: Diagnosis - Discharge Diagnosis (1) COPD with exacerbation Status: Acute (2) Community acquired pneumonia Status: Acute DS: Medications - Discharge Medications Prescriptions: azithromycin [Zithromax] 500 mg PO DAILY #6 tab cefuroxime axetil 500 mg PO Q12H #12 tab ipratropium-albuterol 1 amp NEB Q6HR NEB PRN #1 box PRN Reason: Shortness Of Breath prednisone 10 mg PO DIRECTED #20 tab DS: Summary Hospital Course: 78-year-old male who originally presented to hospital because of 6- day history of fatigue, upper respiratory symptoms which he was using over-the- counter Robitussin decongestants without any significant relief. Patient is followed by Dr. Souza on a regular basis. And he just finished a course of steroids for shortness of breath. The patient had a workup emergency department and found to have acute hypoxic respiratory failure requiring increased O2 supplementation maintain O2 sats. Chest x-ray/CT scan showing groundglass opacities which could be typical of edema versus atypical infection. Consolidation left lung bronchial pneumonia. Nodules in the lungs recommending 12-month follow-up. Patient was admitted to hospital with O2 segmentation, empirical antibiotics with Rocephin, Zithromax. Patient started on Solu-Medrol, nebulizer treatments. Torch Heater was consulted for recommendations during his stay in the hospital. Further studies were performed and influenza testing was negative, Legionella was negative, blood cultures negative for 4 days. However streptococcal pneumonia antigen was positive. Patient is undergoing appropriate treatment for streptococcal pneumonia. Patient with combination of COPD exacerbation, pneumonia, possible pulmonary edema. Patient was given Lasix in the emergency department without any significant benefit. Patient continued on present treatment plan and slowly did improve. Currently the patient is down to 2 L of oxygen. Patient indicates that he is feeling much better and would like to go home. Respiratory therapist did remove the oxygen and he did drop down to 88%. Case management consulted to arrange for home oxygen. Patient is clinically stable at this time with home oxygen. Would recommend patient follow-up with his die reamer and primary medical doctor upon discharge. We will plan discharge once arrangements made by case management. - Time Spent with Patient Total time spent providing and/or coordinating discharge services: Greater than 30 minutes - Quality: VTE Deep Vein Thrombosis/Pulmonary Embolism Present on Admission: No Exam Vital signs: Vital Signs 07/24/18 12:00 07/24/18 16:00 07/24/18 20:00 Temperature 96.1 F L 96.2 F L 96.9 F L Pulse Rate 66 67 65 Respiratory Rate 20 20 20 Blood Pressure 146/63 H 131/63 142/63 H Pulse Oximetry 95 94 L 95 Pulse Oximetry [Resting on Room Air] Pulse Oximetry [Resting with Oxygen] 07/24/18 20:30 07/24/18 20:45 07/25/18 00:00 Temperature 96.2 F L Pulse Rate 65 65 Respiratory Rate 20 Blood Pressure 137/61 Pulse Oximetry 94 L 96 Pulse Oximetry [Resting on Room Air] Pulse Oximetry [Resting with Oxygen] 07/25/18 01:05 07/25/18 02:54 07/25/18 04:00 Temperature 96.7 F L Pulse Rate 54 L 61 Respiratory Rate 18 20 Blood Pressure 141/65 H Pulse Oximetry 92 L Pulse Oximetry [Resting on Room Air] Pulse Oximetry [Resting with Oxygen] 07/25/18 06:26 07/25/18 08:00 07/25/18 08:47 Temperature 96.8 F L Pulse Rate 51 L 62 Respiratory Rate 17 Blood Pressure 173/72 H Pulse Oximetry 95 95 Pulse Oximetry [Resting on Room Air] Pulse Oximetry [Resting with Oxygen] 07/25/18 09:11 Temperature Pulse Rate Respiratory Rate Blood Pressure Pulse Oximetry Pulse Oximetry [Resting on Room Air] 88 L Pulse Oximetry [Resting with Oxygen] 95 Intake & Output 07/24/18 07/25/18 07/25/18 18:59 06:59 18:59 Intake Total 2010 240 / 240 Output Total 1150 / 1150 1500 / 1500 Balance 861 / 861 -1260 / -1260 Weight 75.7 kg Intake: IV 421 / 421 NS Inj 1,000 ML @ 100 mls/hr IV 321 / 321 .CONT .Q10H ALEXANDREA Rx#:[id number] Rocephin Inj 1,000 MG In NS Inj 100 / 100 100 ML @ 200 mls/hr IV.SIG Q24H ALEXANDREA Rx#:[id number] Oral 1590 / 1590 240 / 240 Output: Urine 1150 / 1150 1500 / 1500 Other: # Voids 3 Date of Last Bowel Movement 07/23/18 07/24/18 # Bowel Movements 1 Narrative: GENERAL: Well-developed, well-nourished, in no acute distress. alert and orientated HEENT: Head is normocephalic without any lesions or masses noted. Facial features are symmetric. Eyes: Extraocular muscles are intact. Conjunctivae were clear. NECK: Supple without any masses. Trachea midline no deviation. No JVD, CARDIAC: Regular rhythm, regular rate. S1/S2 are heard. No murmurs gallops or rubs. LUNGS: Clear to auscultation bilaterally. No wheeze, rhonchi or rales. No use of accessory muscles on inspiration or expiration. ABDOMEN: Soft, nontender. Nondistended. Bowel sounds heard in all 4 quadrants. No organomegaly or masses. Negative rebound, negative guarding EXTREMITIES: No edema, pulses are equal bilaterally. No cyanosis or clubbing NEUROLOGY: Mood and affect appear appropriate. Cranial nerves II through XII grossly intact. Moving all extremities, speech is clear Results Procedures completed during hospitalization: ECHOCARDIOGRAM CONCLUSIONS Normal left ventricular size. Wall thickness is normal. The left ventricular systolic function is normal with an estimated ejection fraction in the range of 60-65%. No regional wall motion abnormalities are present. There is trace tricuspid valve regurgitation. The estimated pulmonary arterial pressure is 41 mmHg. Labs on day of discharge: Labs from last 24 hours 07/25/18 07/25/18 07/25/18 07:49 05:35 05:35 CBC w Diff Slide review pending WBC 11.9 H RBC 4.46 L Hgb 12.1 L Hct 36.8 L MCV 82.6 MCH 27.1 MCHC 32.8 RDW 13.8 Plt Count 202 MPV 8.8 Neut % (Auto) 82.0 H Lymph % (Auto) 11.1 [place] % (Auto) 6.4 Eos % (Auto) 0.2 Baso % (Auto) 0.3 Neut # (Auto) 9.8 H Lymph # (Auto) 1.3 [place] # (Auto) 0.8 Eos # (Auto) 0.0 Baso # (Auto) 0.0 WBC Differential . Diff Scan Auto diff confirmed Differential Comment . Sodium 144 Potassium 4.0 Chloride 109 H Carbon Dioxide 27.8 Anion Gap 7 BUN 19 H Creatinine 0.83 Estimated GFR Greater than 89 POC Glucose 144 H Random Glucose 174 H Hemoglobin A1c Lactic Acid Calcium 7.9 L 07/24/18 07/24/18 07/24/18 21:19 16:50 16:44 CBC w Diff WBC RBC Hgb Hct MCV MCH MCHC RDW Plt Count MPV Neut % (Auto) Lymph % (Auto) [place] % (Auto) Eos % (Auto) Baso % (Auto) Neut # (Auto) Lymph # (Auto) [place] # (Auto) Eos # (Auto) Baso # (Auto) WBC Differential Diff Scan Differential Comment Sodium Potassium Chloride Carbon Dioxide Anion Gap BUN Creatinine Estimated GFR POC Glucose 218 H 242 H Random Glucose Hemoglobin A1c Lactic Acid 2.7 H Calcium 07/24/18 07/24/18 13:40 05:40 CBC w Diff WBC RBC Hgb Hct MCV MCH MCHC RDW Plt Count MPV Neut % (Auto) Lymph % (Auto) [place] % (Auto) Eos % (Auto) Baso % (Auto) Neut # (Auto) Lymph # (Auto) [place] # (Auto) Eos # (Auto) Baso # (Auto) WBC Differential Diff Scan Differential Comment Sodium Potassium Chloride Carbon Dioxide Anion Gap BUN Creatinine Estimated GFR POC Glucose Random Glucose Hemoglobin A1c 7.8 H Lactic Acid 2.9 H Calcium Preliminary micro results at discharge 07/21/18 10:10 Aerobic Blood Culture - Preliminary Blood - Peripheral No growth in 4 days Anaerobic Blood Culture - Preliminary No growth in 4 days 07/21/18 10:15 Aerobic Blood Culture - Preliminary Blood - Peripheral No growth in 4 days Anaerobic Blood Culture - Preliminary No growth in 4 days - Impressions ITS Impressions Chest CT 07/21/18 00:00 CONCLUSION: 1. Interval development of mosaic attenuation in the upper lobes most likely secondary to diffuse groundglass opacities. Differential considerations include atypical pulmonary edema versus atypical infection. 2. New patchy airspace consolidation in the left lung base which may reflect developing bronchopneumonia. 3. New 5 mm nodule in the superior segment of the right lower lobe and 3 mm nodule in the left upper lobe, likely inflammatory/infectious. Routine follow- up of sub-6 mm nodules is not recommended. Twelve-month follow-up CT exam may be performed if patient is at high risk per 2017 Fleischner criteria. 4. Progressive mild mediastinal adenopathy. Although nonspecific, suspect inflammatory/infectious etiology. 5. Additional stable ancillary findings, as above. Chest X-Ray 07/23/18 18:29 CONCLUSION: 1. Persistent diffuse interstitial edema. 2. Progressive mild airspace disease at the left lung base which may reflect atelectasis. Discharge Plan - Discharge Disposition Patient Disposition: W/Home Health Service - Discharge Condition Condition: Stable - Discharge Details Anticipated Discharge Date: 07/25/18 Discharge Comment: Okay to discharge home once arrangements made by case management for home health and home oxygen - Physicians Team Primary Care Provider: NON STAFF,PROVIDER Attending Provider: Steve Perez Other Providers: Joseph Ruiz MD
[2018-07-25] MEDS: Enoxaparin Inj 40 MG/0.4 ML Syringe SQ SCH (11:50)
--- NOTE | 2018-07-25 14:22 | P.PN ---
Subjective Interval history: alert nad ambulating o2 sat resting 94 84% with activity% Physical Exam Vital signs: Vital Signs 07/24/18 16:00 07/24/18 20:00 07/24/18 20:30 Temperature 96.2 F L 96.9 F L Pulse Rate 67 65 65 Respiratory Rate 20 20 Blood Pressure 131/63 142/63 H Pulse Oximetry 94 L 95 Pulse Oximetry [Resting on Room Air] Pulse Oximetry [Resting with Oxygen] 07/24/18 20:45 07/25/18 00:00 07/25/18 01:05 Temperature 96.2 F L Pulse Rate 65 Respiratory Rate 20 18 Blood Pressure 137/61 Pulse Oximetry 94 L 96 Pulse Oximetry [Resting on Room Air] Pulse Oximetry [Resting with Oxygen] 07/25/18 02:54 07/25/18 04:00 07/25/18 06:26 Temperature 96.7 F L Pulse Rate 54 L 61 51 L Respiratory Rate 20 Blood Pressure 141/65 H Pulse Oximetry 92 L Pulse Oximetry [Resting on Room Air] Pulse Oximetry [Resting with Oxygen] 07/25/18 08:00 07/25/18 08:47 07/25/18 09:11 Temperature 96.8 F L Pulse Rate 62 Respiratory Rate 17 Blood Pressure 173/72 H Pulse Oximetry 95 95 Pulse Oximetry [Resting on Room Air] 88 L Pulse Oximetry [Resting with Oxygen] 95 07/25/18 12:00 Temperature 95.8 F L Pulse Rate 67 Respiratory Rate 17 Blood Pressure 158/70 H Pulse Oximetry 96 Pulse Oximetry [Resting on Room Air] Pulse Oximetry [Resting with Oxygen] Intake & Output 07/24/18 07/25/18 07/25/18 18:59 06:59 18:59 Intake Total 2010 240 / 240 Output Total 1150 / 1150 1500 / 1500 Balance 861 / 861 -1260 / -1260 Weight 75.7 kg Intake: IV 421 / 421 NS Inj 1,000 ML @ 100 mls/hr IV 321 / 321 .CONT .Q10H ALEXANDREA Rx#:[id number] Rocephin Inj 1,000 MG In NS Inj 100 / 100 100 ML @ 200 mls/hr IV.SIG Q24H ALEXANDREA Rx#:[id number] Oral 1590 / 1590 240 / 240 Output: Urine 1150 / 1150 1500 / 1500 Other: # Voids 3 Date of Last Bowel Movement 07/23/18 07/24/18 # Bowel Movements 1 Narrative: GENERAL: Well-developed, well-nourished, in no acute distress. alert and orientated HEENT: Head is normocephalic without any lesions or masses noted. Facial features are symmetric. Eyes: Extraocular muscles are intact. Conjunctivae were clear. NECK: Supple without any masses. Trachea midline no deviation. No JVD, CARDIAC: Regular rhythm, regular rate. S1/S2 are heard. No murmurs gallops or rubs. LUNGS: Clear to auscultation bilaterally. No wheeze, rhonchi or rales. No use of accessory muscles on inspiration or expiration. ABDOMEN: Soft, nontender. Nondistended. Bowel sounds heard in all 4 quadrants. No organomegaly or masses. Negative rebound, negative guarding EXTREMITIES: No edema, pulses are equal bilaterally. No cyanosis or clubbing NEUROLOGY: Mood and affect appear appropriate. Cranial nerves II through XII grossly intact. Moving all extremities, speech is clear Results - Labs CBC & Chem 7: 07/25/18 05:35 07/25/18 05:35 Laboratory Results - last 24 hr 07/24/18 07/24/18 07/24/18 05:40 13:40 16:44 CBC w Diff WBC RBC Hgb Hct MCV MCH MCHC RDW Plt Count MPV Neut % (Auto) Lymph % (Auto) [place] % (Auto) Eos % (Auto) Baso % (Auto) Neut # (Auto) Lymph # (Auto) [place] # (Auto) Eos # (Auto) Baso # (Auto) WBC Differential Diff Scan Differential Comment Sodium Potassium Chloride Carbon Dioxide Anion Gap BUN Creatinine Estimated GFR POC Glucose Random Glucose Hemoglobin A1c 7.8 H Lactic Acid 2.9 H 2.7 H Calcium 07/24/18 07/24/18 07/25/18 16:50 21:19 05:35 CBC w Diff WBC RBC Hgb Hct MCV MCH MCHC RDW Plt Count MPV Neut % (Auto) Lymph % (Auto) [place] % (Auto) Eos % (Auto) Baso % (Auto) Neut # (Auto) Lymph # (Auto) [place] # (Auto) Eos # (Auto) Baso # (Auto) WBC Differential Diff Scan Differential Comment Sodium 144 Potassium 4.0 Chloride 109 H Carbon Dioxide 27.8 Anion Gap 7 BUN 19 H Creatinine 0.83 Estimated GFR Greater than 89 POC Glucose 242 H 218 H Random Glucose 174 H Hemoglobin A1c Lactic Acid Calcium 7.9 L 07/25/18 07/25/18 07/25/18 05:35 07:49 11:49 CBC w Diff Slide review pending WBC 11.9 H RBC 4.46 L Hgb 12.1 L Hct 36.8 L MCV 82.6 MCH 27.1 MCHC 32.8 RDW 13.8 Plt Count 202 MPV 8.8 Neut % (Auto) 82.0 H Lymph % (Auto) 11.1 [place] % (Auto) 6.4 Eos % (Auto) 0.2 Baso % (Auto) 0.3 Neut # (Auto) 9.8 H Lymph # (Auto) 1.3 [place] # (Auto) 0.8 Eos # (Auto) 0.0 Baso # (Auto) 0.0 WBC Differential . Diff Scan Auto diff confirmed Differential Comment . Sodium Potassium Chloride Carbon Dioxide Anion Gap BUN Creatinine Estimated GFR POC Glucose 144 H 175 H Random Glucose Hemoglobin A1c Lactic Acid Calcium Microbiology 07/21/18 10:10 Blood - Peripheral Aerobic Blood Culture - Preliminary No growth in 4 days 07/21/18 10:10 Blood - Peripheral Anaerobic Blood Culture - Preliminary No growth in 4 days 07/21/18 10:15 Blood - Peripheral Aerobic Blood Culture - Preliminary No growth in 4 days 07/21/18 10:15 Blood - Peripheral Anaerobic Blood Culture - Preliminary No growth in 4 days - Procedures ECHOCARDIOGRAM CONCLUSIONS Normal left ventricular size. Wall thickness is normal. The left ventricular systolic function is normal with an estimated ejection fraction in the range of 60-65%. No regional wall motion abnormalities are present. There is trace tricuspid valve regurgitation. The estimated pulmonary arterial pressure is 41 mmHg. Assessment and Plan - Plan COPD EXACERBATION RESPIRATORY FAILURE PNA PLAN O2, will need home O2 ANTIBX F/U CXRAY today OFFICE 1 WEEK POST D/C
--- NOTE | 2018-07-25 15:28 | XR ---
EXAM DATE: 07/25/2018 2:56 PM EST AGE/SEX: 78 years / Male INDICATIONS: . Short of breath, CLINICAL DATA: This is the patient's subsequent encounter. Patient reports that signs and symptoms h ave been present for 1 day and indicates a pain score of 0/10. MEDICAL/SURGICAL HISTORY: Chronic obstructive pulmonary disease. Hypercholesterolemia. Hypert ension. None. COMPARISON: [facility], CHEST 1V SINGLE AP, 07/23/2018. [facility], CT CHEST W/O CONTRAST, 07/21/2018. . FINDINGS: AP and lateral views of the chest demonstrate a normal-sized cardiac silhouette. There is mild reticu lar nodular interstitial opacity at the lung bases bilaterally. No pleural effusion, pneumothorax, or focal consolidation is present. Bones and soft tissues demonstrate no acute abnormality. There are d egenerative changes of the thoracic spine. CONCLUSION: Persistent reticular nodular interstitial opacity at the lung bases. Electronically signed by: Bill Bansal MD 07/25/2018 3:26 PM EST
[2018-07-25 16:10] VITALS: BP 136/63; PULSE 64; TEMP 96; O2SAT 92
== END 2018-07-25 17:27 | disposition home health service (06) ==
LOC: PHED 10:13 → PHEDA 11:57 → PH3 13:16
PROVIDERS: ADMIT Hospitalist; ATTEND Hospitalist